=== PATIENT | male | born 1950 | race Caucasian/White ===

== ENCOUNTER 2019-04-06 13:57 | Inpatient (IN) ==
[~2019-04-06 13:57] MED LIST: D5% in 0.45% NACL 1,000 ML IVC ONE
[2019-04-06] MEDS: *HR* Acetylcysteine 20% 600 MG/3 ML ORAL SYRINGE PO SCH ×2 (15:04→20:07)
[2019-04-06] MEDS: D5% in 0.45% NACL 1,000 ML IVC SCH (16:32)
[2019-04-06] MEDS ORDERED: carvediloL 6.25 MG TABLET PO SCH (17:00)
[2019-04-07] MEDS: D5% in 0.45% NACL 1,000 ML IVC SCH (05:52)
[2019-04-07] MEDS: *HR* Acetylcysteine 20% 600 MG/3 ML ORAL SYRINGE PO SCH (06:25)
[2019-04-07 06:27] LABS: Basophils # 0.1 K/mcL (0.0-0.2); Basophils % 1.5 %; Eosinophils # 0.3 K/mcL (0.0-0.6); Eosinophils % 4.1 %; Hematocrit 43.1 % (37.5-50.1); Immature Granulocytes % 0.1 % (0-4); Lymphocytes # 2.1 K/mcL (0.6-4.6); Lymphocytes % 27.6 %; Mean Corpuscular HGB Conc 32.5 g/dL (31.6-35.5); Mean Corpuscular Hemoglobin 29.9 pg (28.0-33.3); Mean Corpuscular Volume 91.9 fL (83.0-100.0); Mean Platelet Volume 10.6 fL (9.4-12.4); Monocytes # 0.7 K/mcL (0.0-1.3); Monocytes % 8.8 %; Neutrophils # 4.3 K/mcL (1.6-8.9); Platelet Count 189 K/mcL (140-400); Red Blood Count 4.69 M/mcL (4.19-5.50); Red Cell Distribution Width 13.4 % (11.5-14.5); Segmented Neutrophils % 57.9 %; White Blood Count 7.5 K/mcL (4.3-11.1)
[2019-04-07 06:50] LABS: Calcium 9.3 mg/dL (8.6-10.3); Potassium 4.1 mEq/L (3.5-5.1)
[2019-04-07] MEDS ORDERED: Sodium Bicarbonate 150 MEQ in D5% in Water 1,000 ML IVC SCH (07:00)
[2019-04-07] MEDS ORDERED: CeFAZolin Syr 2,000MG/20 ML 2,000 MG/20 ML SYRINGE IVPB ONE (07:00)
[2019-04-07] MEDS ORDERED: Heparin 1,000 UNITS/500 mL 0 ML ONE (07:09)
[2019-04-07] MEDS ORDERED: *HR* FentaNYL (PF) 100 MCG/2 ML VIAL ONE (07:10)
[2019-04-07] MEDS ORDERED: *HR* Midazolam HCl 2 MG/2 ML VIAL ONE (07:10)
[2019-04-07] MEDS ORDERED: *HR* Propofol 200 MG/20 ML VIAL IVP ONE (07:11)
[2019-04-07] MEDS ORDERED: Ondansetron 4 MG/2 ML VIAL ONE (07:14)
[2019-04-07] MEDS ORDERED: Dexamethasone 4 MG/ML VIAL ONE (07:14)
[2019-04-07] MEDS ORDERED: Lidocaine -MPF 2% 2 ML VIAL ONE ×2 (07:14→07:21)
[2019-04-07] MEDS ORDERED: *HR* Succinylcholine 200 MG/10 ML VIAL IVP ONE (07:14)
[2019-04-07] MEDS ORDERED: EPHEDrine 50 MG/ML VIAL ONE (07:14)
[2019-04-07] MEDS ORDERED: Heparin 1,000 UNITS/500 mL 2,000 ML ONE (07:20)
[2019-04-07] MEDS ORDERED: *HR* Remifentanil 2 MG VIAL IVP ONE (07:21)
[2019-04-07] MEDS ORDERED: Isovue-300 50ML VIAL ONE (07:21)
[2019-04-07] MEDS ORDERED: Lidocaine HCL 4 ML Topical Solution (Laryng-O-Jet Kit Sterile Pak) TP ONE (07:26)
[2019-04-07] MEDS ORDERED: *HR* PHENYLEPHRINE 1,000 MCG/10 ML SYRINGE IVP ONE (07:29)
[2019-04-07] MEDS ORDERED: ceFAZolin 1,000 MG, Sodium Chloride IRRigation 1,000 ML IR ONE (07:45)
[2019-04-07] MEDS ORDERED: Aspirin Enteric Coated 81 MG Tablet PO SCH (09:00)
[2019-04-07] MEDS ORDERED: Folic Acid 1 MG TABLET PO SCH (09:00)
[2019-04-07] MEDS ORDERED: *HR* Heparin 5,000 UNIT/ML VIAL ONE ×2 (10:49)
[2019-04-07] MEDS ORDERED: *HR* OxyCODONE Immed Rel 5 MG TABLET PO ONE (12:55)
[2019-04-07] MEDS ORDERED: Naloxone 0.4 MG/ML INJ IVP PRN (13:06)
[2019-04-07] MEDS ORDERED: Ondansetron 4 MG/2 ML VIAL IVP PRN (13:06)
[2019-04-07] MEDS ORDERED: *HR* HYDROcodone/Acet 5/325 mg TABLET PO PRN (13:06)
[2019-04-07] MEDS ORDERED: Acetaminophen 325 MG TABLET PO PRN (13:06)
[2019-04-07] MEDS: Sodium Bicarbonate 150 MEQ in D5% in Water 1,000 ML IVC SCH ×2 (13:20→19:55)
[2019-04-07] MEDS: carvediloL 6.25 MG TABLET PO SCH (19:13)
[2019-04-07] MEDS ORDERED: *HR* Acetylcysteine 20% 600 MG/3 ML ORAL SYRINGE PO SCH (21:00)
[2019-04-08 06:33] LABS: Basophils % 0.1 %; Hematocrit 37.6 % (37.5-50.1); Immature Granulocytes % 0.6 % (0-4); Lymphocytes # 0.8 K/mcL (0.6-4.6); Lymphocytes % 7.2 %; Mean Platelet Volume 10.5 fL (9.4-12.4); Monocytes # 0.6 K/mcL (0.0-1.3); Monocytes % 5.6 %; Neutrophils # 9.6 K/mcL (1.6-8.9); Platelet Count 179 K/mcL (140-400); Red Blood Count 4.13 M/mcL (4.19-5.50); Red Cell Distribution Width 13.4 % (11.5-14.5); Segmented Neutrophils % 86.5 %; White Blood Count 11.1 K/mcL (4.3-11.1)
[2019-04-08 06:53] LABS: Calcium 8.4 mg/dL (8.6-10.3); Potassium 3.8 mEq/L (3.5-5.1)
[2019-04-08 07:03] LABS: Hemoglobin 12.4 g/dL (12.9-16.9)
[2019-04-08] MEDS: carvediloL 6.25 MG TABLET PO SCH (08:34)
[2019-04-08] MEDS ORDERED: Folic Acid 1 MG TABLET PO SCH (09:00)
[2019-04-08] MEDS ORDERED: Aspirin Enteric Coated 81 MG Tablet PO SCH (09:00)
[2019-04-08 11:56] VITALS: BP 144/76
== END 2019-04-08 13:24 | disposition home or self-care (01) | DRG 269 ==
LOC: 2NNU → EDSTATUS 04-07 07:45
PROVIDERS: ADMIT Surgery Vascular Surgery; ATTEND Surgery Vascular Surgery